=== PATIENT | female | born 1990 | race Caucasian/White ===

== ENCOUNTER 2016-03-17 04:02 | Emergency (ER) | payer BC ==
[2016-03-17] MEDS ORDERED: KETOROLAC TROMETHAMINE INJ/PF 30 MG/1 ML SDV IV ONE (04:24)
[2016-03-17] MEDS ORDERED: DIAZEPAM INJ 10 MG/2 ML DISP.SYRIN IV ONE ×2 (04:24→04:25)
--- NOTE | 2016-03-17 04:28 | ER Document Report ---
ED General - General Chief Complaint: Back Pain Stated Complaint: BACK PAIN Notes: Patient is 26-year-old female presents with complaint of low back pain. Patient 's had this a few times in the past. She says she gets severe spasming in her back and hurts to move. No numbness or weakness into her legs. Some pain does radiate down her leg. No loss of bowel control. Patient says she gets spasms in her back when she urinates but she is able to urinate. No actual retention. No dysuria. No fevers. No recent trauma. Patient first noticed the pain when she was unloading the laundry. Patient said she went to stretch as sometimes stretching will help and help prevent the spasm; however, the spasming continued to worsen. TRAVEL OUTSIDE OF THE [place] IN LAST 30 DAYS: No - Related Data Allergies/Adverse Reactions: Penicillins Allergy (Verified 02/13/16 01:08) Past Medical History - Social History Smoking Status: Never Smoker Frequency of alcohol use: None Drug Abuse: None Family History: Other - No history for VTE. Pulmonary Medical History: Reports: Hx Asthma, Hx Pneumonia - Pneumonia twice a year as a child for many years. Past Surgical History: Reports: Hx Thyroid Surgery, Hx Tonsillectomy - Immunizations Hx Diphtheria, Pertussis, Tetanus Vaccination: Yes Review of Systems - Review of Systems Notes: My Normal Review Basic REVIEW OF SYSTEMS: CONSTITUTIONAL : Denies fever, chills, or sweats. Denies recent illness. GASTROINTESTINAL: Denies abdominal pain. Denies nausea, vomiting, or diarrhea. Denies constipation. Last BM: GENITOURINARY: Denies difficulty urinating, painful urination, burning, frequency, or blood in urine. MUSCULOSKELETAL: Back pain some pain to palpation across the lumbar paraspinal musculature as well as into the gluteal region. SKIN: Denies rash or skin lesions. NEUROLOGICAL: No weakness or decreased sensation. ALL OTHER SYSTEMS REVIEWED AND NEGATIVE. Physical Exam - Vital signs Vitals: Temp Pulse Resp BP Pulse Ox 98.1 F 71 20 129/53 H 96 03/17/16 04:11 03/17/16 04:11 03/17/16 04:11 03/17/16 04:11 03/17/16 04:11 - Notes Notes: General Appearance: Well nourished, alert, cooperative, no acute distress, moderate obvious discomfort. Vitals: reviewed, See vital signs table. Back: Pain palpation over the bilateral lumbar paraspinal musculature. Some pain into the gluteal region. Extremities: strength 5/5 in all extremities, good pulses in all extremities, good strength with plantar and dorsiflexion. Good distal sensation., no edema. Skin: warm, dry, appropriate color, no rash Neuro: speech clear, oriented x 3, normal affect, responds appropriately to questions. Course - Vital Signs Vital signs: Temp Pulse Resp BP Pulse Ox 98.1 F 71 20 129/53 H 96 03/17/16 04:11 03/17/16 04:11 03/17/16 04:11 03/17/16 04:11 03/17/16 04:11 - Transfer of Care Notes: 03/17/16 05:49 Patient's back pain is significantly improved on exam. She has no evidence of any central cord compression. She has no loss of bowel control. No urinary retention. Lower leg weakness. Feel patient is safe to be discharged home. Acute exacerbation of her chronic recurrent back pain. Encourage her to follow- up with primary care doctor for close reevaluation. Encouraged her to return to ER if she has worsening pain, leg weakness, loss of bowel control, urinary retention, or feels unwell. Patient agrees with plan will be discharged home. Dictation of this chart was performed using voice recognition software; therefore, there may be some unintended grammatical errors. Discharge - Discharge Clinical Impression: Back pain Qualifiers: Back pain location: low back pain Chronicity: acute Back pain laterality: bilateral Sciatica presence: without sciatica Qualified Code(s): M54.5 - Low back pain Condition: Good Disposition: HOME, SELF-CARE Instructions: Oral Narcotic Medication ([facility]) Additional Instructions: LOW BACK PAIN: Three out of every four people will have an episode of disabling back pain during their lifetime. Most commonly the pain is due to straining of the muscles and ligaments in the low back. Usual treatment includes: (1) Rest on a firm surface. Avoid lying on your stomach. (2) Ice pack the painful area. After a few days, gentle heat may be used intermittently to relax the area, or ice packs can be continued. (3) Medication may be needed -- muscle relaxers and antiinflammatory medicines are commonly used. (4) As the back improves, exercises are prescribed to strengthen the back and abdominal muscles. Your doctor will advise you on the proper care for your back at each stage in your recovery. You may be better in a few days -- or healing may take several weeks. If new symptoms of a "herniated disc" (radiation of pain, numbness, or tingling down the back of the leg or weakness in the leg) occur, you should be re-examined. Further testing may be necessary. PAIN MEDICATION INJECTION: You have received an injection of a pain medication. You should experience significant pain relief within 45 minutes. If this injection was a narcotic -- it will impair your judgement, slow your reaction time and make you sleepy (as well as relieve your pain). Narcotics also can cause nausea. You should not drive, work with machinery, or perform any task requiring mental alertness until all effects of the medication are gone -- six to eight hours. Do not take any alcohol, or sedatives, and do not take any other medication without checking with your physician. MUSCLE RELAXERS: Muscle relaxing medications are usually prescribed for acute muscle spasm or injury to the neck and back. They are often combined with antiinflammatory pain medication for increased relief. You may stop the muscle relaxer when the pain and stiffness have improved. Start the medication again if spasms recur. Muscle relaxers may cause drowsiness, especially with the first dose. Do not operate machinery or drive while under the effects of the medication. Most muscle relaxers last up to 24 hours. Do not combine the medication with alcohol. ICE PACKS: Apply ice packs frequently against the painful area. Many different schedules are recommended, such as "20 minutes on, 20 minutes off" or "one hour ice, two hours rest." If you need to work, you may need to go longer between ice treatments. You should plan to have the area ice packed AT LEAST one fourth of the time. The ice should be applied over the wrap, tape, or splint, or over a layer of cloth -- not directly against the skin. Some ice bags have a built-in cloth and can be put directly on the skin. WARM PACKS: After approximately two days, apply gentle heat (such as a heating pad or hot water bottle) for about 20 to 30 minutes about every two hours -- at least four times daily. Warmth and elevation will help you make a more rapid recovery , and will ease the pain considerably. Do not use HOT heat, and never apply heat for longer than 30 minutes. The continuous heat can invisibly damage skin and muscles -- even when no burn is seen on the surface. Damaged muscles can make you MORE sore. FOLLOW-UP CARE: If you have been referred to a physician for follow-up care, call the physician s office for an appointment as you were instructed or within the next two days. If you experience worsening or a significant change in your symptoms, notify the physician immediately or return to the Emergency Department at any time for re-evaluation. Please follow closely with her doctor for close reevaluation and treatment. Please return to ER if you have worsening pain, leg weakness or numbness, loss of control her bowel function, or inability to urinate. Prescriptions: Diazepam [Valium 5 mg Tablet] 5 mg PO QIDP PRN #15 tablet PRN Reason: muscle spasm Naproxen [Naprosyn 250 mg Tablet] 250 mg PO BID #20 tablet Forms: Special Work Note, Return to Work Referrals: [Primary Care Provider] - Follow up as needed
[2016-03-17] MEDS ORDERED: HYDROMORPHONE HCL INJ/PF 2 MG/ML AMPULE IV ONE (05:15)
[2016-03-17 06:08] VITALS: BP 113/51
== END 2016-03-17 06:08 | disposition home or self-care (01) ==
LOC: ER 04:02
DX: M54.5 Low back pain (principal); R25.2 Cramp and spasm; J45.909 Unspecified asthma, uncomplicated
CPT/HCPCS: 99283; 96374; 96375; J3360; J1885; J1170

== ENCOUNTER 2016-03-19 11:22 | Emergency (ER) | payer BC ==
[2016-03-19] MEDS ORDERED: OXYCODONE-ACETAMINOPHEN 5-325 MG TABLET PO ONE (11:33)
--- NOTE | 2016-03-19 11:33 | ER Document Report ---
ED Medical Screen (RME) - General Stated Complaint: BACK PAIN Time seen by provider: 11:29 Mode of Arrival: Wheelchair Information source: Patient Notes: 26-year-old female presents to ED for back spasms since Tuesday when she moves her toes from the washer to the dryer. States she was in the emergency room Tuesday night she was treated with naproxen and Valium. She was treated with Dilaudid in the ambulance and in the emergency room. She states her pain has not gotten any better. Pain is in the right side of her back going down the right leg states is very difficult to walk, states she knew she needed to urinate yesterday but could not get to the toilet fast enough has not urinated herself when she cannot feel that she needed to go. States she has not had any bowel movements since Tuesday when this pain started I have greeted and performed a rapid initial assessment of this patient. A comprehensive ED assessment and evaluation of the patient, analysis of test results and completion of medical decision making process will be conducted by an additional ED providers. TRAVEL OUTSIDE OF THE [place] IN LAST 30 DAYS: No - Related Data Allergies/Adverse Reactions: Penicillins Allergy (Verified 02/13/16 01:08) Past Medical History Pulmonary Medical History: Reports: Hx Asthma, Hx Pneumonia - Pneumonia twice a year as a child for many years. Past Surgical History: Reports: Hx Thyroid Surgery, Hx Tonsillectomy - Immunizations Hx Diphtheria, Pertussis, Tetanus Vaccination: Yes
[2016-03-19] MEDS ORDERED: CYCLOBENZAPRINE HCL 10 MG TABLET PO ONE (12:07)
--- NOTE | 2016-03-19 12:13 | ER Document Report ---
HPI - HPI Patient complains to provider of: back spasms Pain Level: 5 Context: Patient is a 26-year-old female who presents to the emergency Department with back spasms. Patient was seen here on Tuesday evening complaining of back spasms after she was moving clothes from the washer and dryer. She was sent home with Valium and Naprosyn that these have not controlled her pain and she's been dependent on others for ambulating. Denies any urinary/stool incontinence , saddle anesthesia, no numbness and tingling in her feet but does have sciatica down the back of her right leg. Patient has had history of back spasms for the course of this year she delivered her daughter and put on weight Past medical history significant for asthma, gestational diabetes Past surgical history significant for partial thyroidectomy and tonsils and adenoids Social history 6 pack years, occasional alcohol and marijuana use PCP is Dr[facility] in [facility] - REPRODUCTIVE Reproductive: DENIES: : - DERM Skin Color: Normal Past Medical History - General Information source: Patient - Social History Smoking Status: Current Every Day Smoker Chew tobacco use (# tins/day): No Frequency of alcohol use: None Drug Abuse: None Family History: Other - No history for VTE. Patient has suicidal ideation: No Patient has homicidal ideation: No Pulmonary Medical History: Reports: Hx Asthma, Hx Pneumonia - Pneumonia twice a year as a child for many years. Renal/ Medical History: Denies: Hx Peritoneal Dialysis Past Surgical History: Reports: Hx Thyroid Surgery, Hx Tonsillectomy - Immunizations Hx Diphtheria, Pertussis, Tetanus Vaccination: Yes Vertical Provider Document - CONSTITUTIONAL Agree With Documented VS: Yes General Appearance: WD/WN, Mild Distress, Obese - INFECTION CONTROL TRAVEL OUTSIDE OF THE [place] IN LAST 30 DAYS: No - HEENT HEENT: Atraumatic, Normocephalic - RESPIRATORY O2 Sat by Pulse Oximetry: 97 - CARDIOVASCULAR Cardiovascular: Regular Rate, Regular Rhythm, No Murmur Pulses: Normal: Dorsalis pedis - BACK Back: Normal Inspection Notes: Tense lumbar paraspinous muscles that are tender to palpation. Patient is able to get out of the bed with minor difficulty. Able to stand and bear weight on her own and take a couple of steps around the room but with trepidation. - MUSCULOSKELETAL/EXTREMETIES Musculoskeletal/Extremeties: WOOD DAMIAN, Non-Tender, No Edema. negative: Eccymosis Notes: strength 5/5 in LE's but with pain to provider resistance - NEURO Level of Consciousness: Awake, Alert, Appropriate Motor/Sensory: No Motor Deficit, No Sensory Deficit Course - Re-evaluation Re-evalutation: 03/19/16 12:20 Patient is a 26-year-old female who is hemodynamically stable in mild distress due to pain but otherwise stable. Able to ambulate and pain is tolerable. No concern at this time for central cord compression. Patient's xray ordered by triage does not reveal and acute fracute, lesions or degenerative changes. Patient educated on muscle strain and timeline for healing. Can follow up with her PCP 03/19/16 13:25 Patient has responded well to toradol and flexeril, was able to ambulate to the bathroom on her own and she states this si the best shes felt since tuesday - Vital Signs Vital signs: Temp Pulse Resp BP Pulse Ox 97.9 F 86 16 130/68 H 97 03/19/16 11:31 03/19/16 11:31 03/19/16 11:31 03/19/16 11:31 03/19/16 11:31 - Diagnostic Test Radiology reviewed: Reports reviewed Discharge - Discharge Clinical Impression: Back pain Condition: Good Disposition: HOME, SELF-CARE Additional Instructions: LOW BACK PAIN: Three out of every four people will have an episode of disabling back pain during their lifetime. Most commonly the pain is due to straining of the muscles and ligaments in the low back. Usual treatment includes: (1) Rest on a firm surface. Avoid lying on your stomach. (2) Ice pack the painful area. After a few days, gentle heat may be used intermittently to relax the area, or ice packs can be continued. (3) Medication may be needed -- muscle relaxers and antiinflammatory medicines are commonly used. (4) As the back improves, exercises are prescribed to strengthen the back and abdominal muscles. Your doctor will advise you on the proper care for your back at each stage in your recovery. You may be better in a few days -- or healing may take several weeks. If new symptoms of a "herniated disc" (radiation of pain, numbness, or tingling down the back of the leg or weakness in the leg) occur, you should be re-examined. Further testing may be necessary. PAIN MEDICATION INJECTION: You have received an injection of a pain medication. You should experience significant pain relief within 45 minutes. If this injection was a narcotic -- it will impair your judgement, slow your reaction time and make you sleepy (as well as relieve your pain). Narcotics also can cause nausea. You should not drive, work with machinery, or perform any task requiring mental alertness until all effects of the medication are gone -- six to eight hours. Do not take any alcohol, or sedatives, and do not take any other medication without checking with your physician. MUSCLE RELAXERS: Muscle relaxing medications are usually prescribed for acute muscle spasm or injury to the neck and back. They are often combined with antiinflammatory pain medication for increased relief. You may stop the muscle relaxer when the pain and stiffness have improved. Start the medication again if spasms recur. Muscle relaxers may cause drowsiness, especially with the first dose. Do not operate machinery or drive while under the effects of the medication. Most muscle relaxers last up to 24 hours. Do not combine the medication with alcohol. ICE PACKS: Apply ice packs frequently against the painful area. Many different schedules are recommended, such as "20 minutes on, 20 minutes off" or "one hour ice, two hours rest." If you need to work, you may need to go longer between ice treatments. You should plan to have the area ice packed AT LEAST one fourth of the time. The ice should be applied over the wrap, tape, or splint, or over a layer of cloth -- not directly against the skin. Some ice bags have a built-in cloth and can be put directly on the skin. WARM PACKS: After approximately two days, apply gentle heat (such as a heating pad or hot water bottle) for about 20 to 30 minutes about every two hours -- at least four times daily. Warmth and elevation will help you make a more rapid recovery , and will ease the pain considerably. Do not use HOT heat, and never apply heat for longer than 30 minutes. The continuous heat can invisibly damage skin and muscles -- even when no burn is seen on the surface. Damaged muscles can make you MORE sore. FOLLOW-UP CARE: If you have been referred to a physician for follow-up care, call the physician s office for an appointment as you were instructed or within the next two days. If you experience worsening or a significant change in your symptoms, notify the physician immediately or return to the Emergency Department at any time for re-evaluation. [facility] Address: [address] [place] [id number] Please follow up in 1-2 weeks Prescriptions: Cyclobenzaprine HCl [Flexeril 10 mg Tablet] 10 mg PO TIDP PRN #15 tab PRN Reason: Forms: Elevated Blood Pressure
[2016-03-19] MEDS ORDERED: KETOROLAC TROMETHAMINE 60 MG/2 ML SDV IM ONE (12:36)
[2016-03-19 13:43] VITALS: BP 121/54
== END 2016-03-19 13:49 | disposition home or self-care (01) ==
LOC: ER 11:22
DX: M54.9 Dorsalgia, unspecified (principal); R25.2 Cramp and spasm; M54.31 Sciatica, right side; J45.909 Unspecified asthma, uncomplicated; Z86.32 Personal history of gestational diabetes; F17.200 Nicotine dependence, unspecified, uncomplicated; E89.0 Postprocedural hypothyroidism
CPT/HCPCS: 99283; 96372; 72110; J1885

== ENCOUNTER 2018-06-28 06:27 | Emergency (ER) | payer SELFPAY ==
[2018-06-28] MEDS ORDERED: ALBUTEROL SULFATE 0.083% NEB 2.5 MG/3 ML AMPUL NEB ONE (08:30)
[2018-06-28] MEDS ORDERED: IPRATROPIUM/ALBUTEROL 0.5-2.5 MG/3 ML AMPUL NEB ONE (08:30)
--- NOTE | 2018-06-28 08:53 | RADIOLOGY REPORT (SQ) ---
EXAM DESCRIPTION: CHEST SINGLE VIEW COMPLETED DATE/TIME: 06/28/2018 8:38 am REASON FOR STUDY: cough COMPARISON: None. EXAM PARAMETERS: NUMBER OF VIEWS: One view. TECHNIQUE: Single frontal radiographic view of the chest acquired. RADIATION DOSE: NA LIMITATIONS: None. FINDINGS: LUNGS AND PLEURA: No opacities, masses or pneumothorax. No pleural effusion. MEDIASTINUM AND HILAR STRUCTURES: No masses. Contour normal. HEART AND VASCULAR STRUCTURES: Heart normal in size. Normal vasculature. BONES: No acute findings. HARDWARE: None in the chest. OTHER: No other significant finding. IMPRESSION: No acute abnormality of the lungs. TECHNICAL DOCUMENTATION: JOB ID: [id number] [employer]- All Rights Reserved Reading location - IP/workstation name: [email or web address]
[2018-06-28] MEDS ORDERED: PREDNISONE 20 MG TABLET PO ONE (09:50)
--- NOTE | 2018-06-28 09:54 | ER Document Report ---
ED General - General Chief Complaint: Shortness Of Breath Stated Complaint: TROUBLE BREATHING Time Seen by Provider: 06/28/18 08:29 TRAVEL OUTSIDE OF THE [place] IN LAST 30 DAYS: No - HPI Notes: Patient is a 28-year-old female that presents to the emergency department for chief complaint of asthma exacerbation. patient reports cough and shortness of breath over the last 2 weeks. She states she has been using her home albuterol nebulizer 4 or 5 times daily. She denies having issues with her asthma since she was a child but did require frequent admissions to the hospital as a child. She does report seasonal allergies and a recent URI. She did have fevers but states those have been gone for the last 3 to 4 days. She denies any increased sputum production. She denies any associated chest pain, nausea, vomiting, abdominal pain, and headaches. Past Medical History: Asthma Past Surgical History: Partial thyroidectomy Social History: Daily tobacco, denies drug and alcohol Family History: Reviewed and noncontributory for presenting illness Allergies: Reviewed, see documented allergy list. REVIEW OF SYSTEMS: CONSTITUTIONAL : No fever No chills No diaphoresis No recent illness EENT: No vision changes No congestion No sore throat CARDIOVASCULAR: No chest pain No palpitations RESPIRATORY: shortness of breath cough difficulty breathing GASTROINTESTINAL: No abdominal pain No nausea No vomiting No diarrhea GENITOURINARY: No dysuria No hematuria No difficulty urinating MUSCULOSKELETAL: No back pain No leg pain No arm pain SKIN: No rashes No lesions LYMPHATIC: No swollen, enlarged glands. NEUROLOGICAL: No lightheadedness No headache No weakness No paresthesias PSYCHIATRIC: No anxiety No depression PHYSICAL EXAMINATION: Vital signs reviewed, nursing noted reviewed. GENERAL: Well-appearing, well-nourished and in no acute distress. HEAD: Atraumatic, normocephalic. EYES: Eyes appear normal, extraocular movements intact, sclera anicteric, conjunctiva are normal. ENT: nares patent, oropharynx clear without exudates. Moist mucous membranes. NECK: Normal range of motion, supple without lymphadenopathy LUNGS: Bilateral wheezing and diminished lung sounds with prolonged expiratory phase, no tachypnea or accessory muscle use HEART: Regular rate and rhythm without murmurs ABDOMEN: Soft, nontender, normoactive bowel sounds. No rebound, guarding, or rigidity. No masses appreciated. EXTREMITIES: Nontender, good range of motion, no pitting or edema. NEUROLOGICAL: No focal neurological deficits. Moves all extremities spontaneously Motor and sensory grossly intact on exam. PSYCH: Normal mood, normal affect. SKIN: Warm, Dry, normal turgor, no rashes or lesions noted on exposed skin - Related Data Allergies/Adverse Reactions: Penicillins Allergy (Verified 03/19/16 11:31) Past Medical History - Social History Smoking Status: Unknown if Ever Smoked Family History: Other - No history for VTE. Patient has suicidal ideation: No Patient has homicidal ideation: No Pulmonary Medical History: Reports: Hx Asthma, Hx Pneumonia - Pneumonia twice a year as a child for many years. Renal/ Medical History: Denies: Hx Peritoneal Dialysis Past Surgical History: Reports: Hx Thyroid Surgery, Hx Tonsillectomy - Immunizations Hx Diphtheria, Pertussis, Tetanus Vaccination: Yes Physical Exam - Vital signs Vitals: Temp Pulse Resp BP Pulse Ox 97.7 F 85 20 128/83 H 100 06/28/18 06:32 06/28/18 06:32 06/28/18 06:32 06/28/18 06:32 06/28/18 06:32 Course - Re-evaluation Re-evalutation: 06/28/18 09:53 Vitals reviewed. Nursing notes reviewed. Patient does have significant wheezing bilaterally and was given DuoNeb, albuterol and prednisone. Chest x- ray shows no underlying pneumonia or pneumothorax. She is oxygenating well on room air and in no respiratory distress. She will be discharged home in stable condition with a prescription for albuterol refills and prednisone. She was counseled on return precautions and verbalized understanding. Chest X-Ray 06/28/18 08:29 IMPRESSION: No acute abnormality of the lungs. - Vital Signs Vital signs: Temp Pulse Resp BP Pulse Ox 97.7 F 85 20 128/83 H 100 06/28/18 06:32 06/28/18 06:32 06/28/18 06:32 06/28/18 06:32 06/28/18 06:32 Discharge - Discharge Clinical Impression: Asthma exacerbation Qualifiers: Asthma severity: moderate Asthma persistence: persistent Qualified Code(s): J45.41 - Moderate persistent asthma with (acute) exacerbation Condition: Stable Disposition: HOME, SELF-CARE Instructions: Asthma (FORM[facility]LY [facility], [facility]) Additional Instructions: Please return to the emergency department if you have any worsening, or concern of your symptoms. Please return to the emergency department if you develop chest pain, difficulty breathing, severe abdominal pain, or ongoing vomiting. Please follow-up with your primary care physician in 2-3 days and any other recommended physicians. If prescribed, take all medications as directed. If you have any questions or concerns do not hesitate to return the emergency department for evaluation. Use your albuterol nebulizer every 4 hours for shortness of breath and cough Prescriptions: Albuterol Sulfate [Ventolin 0.083% Neb 2.5 mg/3 mL Ampul] 1 vial NEB Q4 #100 vial Prednisone [Deltasone 20 mg Tablet] 2 tab PO DAILY 5 Days tablet Forms: Smoking Cessation Education Referrals: [facility] [Provider Group] - Follow up in 3-5 days
[2018-06-28 10:25] VITALS: BP 144/76
== END 2018-06-28 10:22 | disposition home or self-care (01) ==
LOC: ER 06:27
DX: J45.41 Moderate persistent asthma with (acute) exacerbation (principal); R06.02 Shortness of breath
CPT/HCPCS: 94640 ×2; 99285; 71045; J7512; J7620

== ENCOUNTER 2018-06-29 03:25 | Emergency (ER) | payer SELFPAY ==
[2018-06-29] MEDS ORDERED: AZITHROMYCIN 250 MG TABLET PO ONE (04:51)
--- NOTE | 2018-06-29 04:53 | ER Document Report ---
HPI - HPI Time Seen by Provider: 06/29/18 04:18 Pain Level: 5 Context: Patient is a 28-year-old female who presents emergency department with a chief complaint of right ear pain. She states that she blew her nose with her today and felt a pop in her right ear. She states that she was seen here in the emergency department, but forgot to tell the previous provider that she had right ear pain. She is currently on prednisone. Denies any other past medical history other than asthma. - CONSTITUTIONAL Constitutional: REPORTS: Fever - EENT EENT: REPORTS: Ear Pain - Right, Nasal Drainage-Clear, Congestion. DENIES: Sore Throat, Nasal Drainage-Purulent - NEURO Neurology: DENIES: Headache, Weakness - CARDIOVASCULAR Cardiovascular: DENIES: Chest pain - RESPIRATORY Respiratory: REPORTS: Coughing. DENIES: Trouble Breathing - GASTROINTESTINAL Gastrointestinal: DENIES: Abdominal Pain - REPRODUCTIVE Reproductive: DENIES: : - MUSCULOSKELETAL Musculoskeletal: DENIES: Extremity pain - DERM Skin Color: Normal Skin Problems: None Past Medical History - Social History Smoking Status: Current Every Day Smoker Family History: Other - No history for VTE. Pulmonary Medical History: Reports: Hx Asthma, Hx Pneumonia - Pneumonia twice a year as a child for many years. Renal/ Medical History: Denies: Hx Peritoneal Dialysis Past Surgical History: Reports: Hx Thyroid Surgery, Hx Tonsillectomy - Immunizations Hx Diphtheria, Pertussis, Tetanus Vaccination: Yes Vertical Provider Document - CONSTITUTIONAL Agree With Documented VS: Yes Exam Limitations: No Limitations General Appearance: No Apparent Distress - INFECTION CONTROL TRAVEL OUTSIDE OF THE [place] IN LAST 30 DAYS: No - HEENT HEENT: Atraumatic, Normocephalic, PERRLA, Tympanic Membrane Bulging - Purulent drainage noted behind right tympanic membrane. negative: Conjuctival Injection, Pharyngeal Exudate, Pharyngeal Tenderness, Pharyngeal Erythema, Tympanic Membrane Red - NECK Neck: Normal Inspection - RESPIRATORY Respiratory: Breath Sounds Normal, No Respiratory Distress - CARDIOVASCULAR Cardiovascular: Regular Rate, Regular Rhythm Pulses: Normal: Radial - MUSCULOSKELETAL/EXTREMETIES Musculoskeletal/Extremeties: FROM - NEURO Level of Consciousness: Awake, Alert, Appropriate Motor/Sensory: No Motor Deficit, No Sensory Deficit - DERM Integumentary: Warm, Dry Course - Re-evaluation Re-evalutation: 06/29/18 04:54 Patient's exam is consistent with acute otitis media of the right ear. She has purulent fluid behind her right tympanic membrane. Left ear is noninjected. S he will be started on azithromycin as she is allergic to penicillin. She will continue her steroids and I will also prescribe her some Flonase to help with her rhinorrhea. She is in agreement with this plan. - Vital Signs Vital signs: Temp Pulse Resp BP Pulse Ox 98.1 F 80 16 97/72 L 98 06/29/18 03:31 06/29/18 03:31 06/29/18 03:31 06/29/18 03:06/29/18 03:31 Discharge - Discharge Clinical Impression: Acute otitis media Qualifiers: Otitis media type: mucoid Laterality: right Qualified Code(s): H65.111 - Acute and subacute allergic otitis media (mucoid) (sanguinous) (serous), right ear Condition: Stable Disposition: HOME, SELF-CARE Additional Instructions: You were seen today in the emergency department for right ear pain. You have an ear infection. Please take your antibiotics as prescribed. If you have worsening symptoms, please return to the emergency department. Please follow-up with your primary care provider. Take ibuprofen and Tylenol for pain relief. Prescriptions: Azithromycin [Zithromax 250 mg Tablet] 250 mg PO DAILY #4 tablet Fluticasone Propionate [Flonase Nasal [place] 50 Mcg/[place] 16 gm] 2 sprays NASL DAILY #1 inhaler Forms: Smoking Cessation Education
[2018-06-29 05:06] VITALS: BP 150/84
== END 2018-06-29 05:06 | disposition home or self-care (01) ==
LOC: ER 03:25
DX: H65.111 Acute and subacute allergic otitis media (mucoid) (sanguinous) (serous), right ear (principal); H92.01 Otalgia, right ear; R05 Cough; R09.89 Other specified symptoms and signs involving the circulatory and respiratory systems; F17.200 Nicotine dependence, unspecified, uncomplicated; J45.909 Unspecified asthma, uncomplicated
CPT/HCPCS: 99282

== ENCOUNTER 2019-02-05 20:27 | Emergency (ER) | payer SELFPAY ==
[2019-02-05 20:50] VITALS: BP 130/69
== END 2019-02-06 00:50 | disposition left against medical advice (07) ==
LOC: ER 20:27
DX: Z53.21 Procedure and treatment not carried out due to patient leaving prior to being seen by health care provider (principal)

== ENCOUNTER 2019-05-11 12:48 | Emergency (ER) | payer SELFPAY ==
[2019-05-11 12:56] VITALS: BP 143/62
[2019-05-11] MEDS ORDERED: CIPROFLOXACIN HCL/DEXAMETH OTIC DROP 7.5 ML AU ONE (13:06)
--- NOTE | 2019-05-11 13:08 | ER Document Report ---
HPI - HPI Time Seen by Provider: 05/11/19 13:03 Pain Level: 5 Notes: 29-year-old female patient presented to the emergency department chief complaint of left ear pain and drainage. Patient reports pain ongoing for the last 2 weeks. Denies fevers. Reports history of otitis media recurrently. - CONSTITUTIONAL Constitutional: DENIES: Fever, Chills - EENT EENT: REPORTS: Ear Pain - NEURO Neurology: REPORTS: Headache - REPRODUCTIVE Reproductive: DENIES: : Past Medical History - General Information source: Patient - Social History Smoking Status: Current Every Day Smoker Family History: Other - No history for VTE. Patient has suicidal ideation: No Patient has homicidal ideation: No Pulmonary Medical History: Reports: Hx Asthma, Hx Pneumonia - Pneumonia twice a year as a child for many years. Renal/ Medical History: Denies: Hx Peritoneal Dialysis Past Surgical History: Reports: Hx Thyroid Surgery, Hx Tonsillectomy - Immunizations Hx Diphtheria, Pertussis, Tetanus Vaccination: Yes Vertical Provider Document - CONSTITUTIONAL Notes: PHYSICAL EXAMINATION: GENERAL: Well-appearing, well-nourished and in no acute distress. HEAD: Atraumatic, normocephalic. EYES: Pupils equal round extraocular movements intact, conjunctiva are normal. ENT: Nares patent, left TM erythematous and retracted. Canals unremarkable, right TM unremarkable. NECK: Normal range of motion LUNGS: No respiratory distress Musculoskeletal: Normal range of motion NEUROLOGICAL: Normal speech, normal gait. PSYCH: Normal mood, normal affect. SKIN: Warm, Dry, normal turgor, no rashes or lesions noted. - INFECTION CONTROL TRAVEL OUTSIDE OF THE [place] IN LAST 30 DAYS: No Course - Re-evaluation Re-evalutation: Exam consistent with otitis media. No mastoid tenderness present. Patient will be started on appropriate medications and discharged home. - Vital Signs Vital signs: Temp Pulse Resp BP Pulse Ox 97.8 F 91 18 143/62 H 97 05/11/19 12:54 05/11/19 12:54 05/11/19 12:54 05/11/19 12:54 05/11/19 12:54 Discharge - Discharge Clinical Impression: Otitis media Qualifiers: Otitis media type: unspecified Chronicity: acute Qualified Code(s): H66.90 - Otitis media, unspecified, unspecified ear Condition: Stable Disposition: HOME, SELF-CARE Additional Instructions: Please take antibiotics as prescribed. Apply 3 drops of the eardrops to the affected ear twice daily. Do this for 7 days. Take all antibiotics as prescribed do not stop taking them if your symptoms resolve. Tylenol or ibuprofen for pain. Prescriptions: Azithromycin [Zithromax 250 mg Tablet] 250 mg PO ASDIR PRN #6 tablet PRN Reason:
== END 2019-05-11 13:16 | disposition home or self-care (01) ==
LOC: ER 12:48
DX: H66.92 Otitis media, unspecified, left ear (principal); H92.02 Otalgia, left ear; H92.12 Otorrhea, left ear; F17.200 Nicotine dependence, unspecified, uncomplicated; J45.909 Unspecified asthma, uncomplicated
CPT/HCPCS: 99282; J3490